=== PATIENT | female | born 1940 | race Caucasian/White ===

== ENCOUNTER 2024-03-20 21:48 | Emergency (ER) | payer MEDICARE, OTHER, SELFPAY ==
[2024-03-20 21:58] VITALS: BP 170/85
[2024-03-20 22:40] LABS: % Basophils 0.4 % (0-2); % Immature Granulocytes 0.4 % (0-0.5); % Lymphocytes 32.8 % (20.5-51.1); % Monocytes 6.5 % (1.7-9.3); % Neutrophils 59.9 % (42.2-75.2); Absolute Lymphocytes 2.7 10^3/uL (1.2-3.4); Absolute Monocytes 0.5 10^3/uL (0.1-0.6); Absolute Neutrophils 4.9 10^3/uL (1.4-6.5); Hematocrit 38.7 % (37.0-47.0); Mean Corp Hgb Conc. 33.6 g/dL (33.0-37.0); Mean Corpuscular Volume 83.4 fL (81.0-99.0); Mean Platelet Volume 10.5 fL (7.4-10.4); Nucleated Red Blood Cells % 0 %; Platelet Count 315 10^3/uL (130-400); Red Blood Cell Count 4.64 10^6/uL (4.20-5.40); Red Cell Dist. Width 13.4 % (11.5-14.5); White Blood Cell Count 8.2 10^3/uL (4.8-10.8)
[2024-03-20 22:49] LABS: Erythrocyte Sed Rate 35 mm/hour (0-20)
[2024-03-20 23:00] LABS: ALT (SGPT) 14 U/L (0-35); AST (SGOT) 18 U/L (14-36); Albumin 4.4 g/dl (3.5-5.0); Alkaline Phosphatase 82 U/L (38-126); Blood Urea Nitrogen 23 mg/dl (7-17); Calcium 9.8 mg/dl (8.4-10.2); Carbon Dioxide 23 mmol/L (22-30); Chloride 106 mmol/L (98-107); Glucose 107 mg/dl (70-99); Potassium 4.3 mmol/L (3.5-5.1); Sodium 137 mmol/L (135-145); Total Bilirubin 0.6 mg/dl (0.2-1.3); Total Protein 7.5 g/dl (6.3-8.2); eGFR > 60.00
--- NOTE | 2024-03-20 23:18 | ED.GENMED ---
History of Present Illness
General
Chief Complaint: Headache
Source: patient
Exam Limitations: none
Time Seen by Provider: 03/20/24 22:54
History of Present Illness
History of Present Illness:
This is a 83 year old female that comes in with multiple complaints. States that her PCP called her 2 days ago and told her to go to the ER. States that he wanted her to get a Sed rate as he was concerned for Temporal arteritis. States that she has
been getting headaches in the temporal area for the past 2 days and the back of her head. States that she feels like she has been loosing her balance for the past week and can't find her footing. Denies any headache at this time. Denies any fever,
chills, chest pain, abd pain, nausea, vomiting, diarrhea, dizziness, urinary burning.
Past History
Past History
ED Past Medical History: GERD, HTN, Hypercholesterolemia, Hypothyroidism, Psychiatric (Depression) and Other (Back pain Neuropathy, Numbness arms and legs, sciatica, IBS, Pancreatitis, Vertigo)
ED Past Surgical History: Cholecystectomy, Gynecological (Hysterectomy), Orthopedic (Right knee Meniscus, discectomy, Lumbar surgery, Right and left foot reconstruction ) and Other (Cataracts, )
Social History
Tobacco: Non-smoker
Alcohol: Occasional
Personal:
Living: alone (son)
Employment: Retired
Family History
Family History: CAD
Review of Systems
Review of Systems
All Other Systems: ROS reviewed and negative except as documented in HPI and ROS
Constitutional: Reports no symptoms; Denies fever or chills
EENT: Reports no symptoms
Respiratory: Reports no symptoms; Denies cough or trouble breathing
Cardiac: Reports no symptoms; Denies chest pain
ABD/GI: Reports no symptoms; Denies abdominal pain, nausea, vomiting or diarrhea
: Reports no symptoms; Denies dysuria, frequency or urgency
Musculoskeletal: Reports no symptoms
Skin: Reports no symptoms
Neurological: Reports headache; Denies dizzy
Psychiatric: Reports no symptoms
Phy Exam
General Physical Exam
General Presentation: well appearing and no apparent distress
General age: appears stated age
General Skin: warm and dry
General Habitus: elderly
General Mental: alert
General Hydration: dry mucous membranes
ENT Exam
ENT Exam: TM's normal, pharynx normal and neck supple
Eye Exam
Eye Exam: EOMI
Cardiovascular Exam
Cardiovascular Exam: regular rate/rhythm and normal peripheral pulses
Pulmonary Exam
Pulmonary Exam: lungs clear, no respiratory distress, no rales, chest non tender, no crackles, no rhonchi, no wheezing and no cough
Gastrointestinal Exam
Gastrointestinal Exam: normal bowel sounds, non tender, soft, no organomegaly, no pulsatile mass and non distended
Musculoskeletal Exam
Musculoskeletal Exam: full ROM and no edema
Skin Exam
Skin Exam: normal color, warm/dry, no rash and no petechia
Psychiatric Exam
Psychiatric Exam: normal mood/affect
Course
Orders/Labs/Results
Orders:
Orders
03/20/24 22:32
CMP [Comprehensive Metabolic Panel] Urgent
Complete Blood Count/With Diff Urgent
Erythrocyte Sed Rate Urgent
03/20/24 23:18
0.9% Sodium Chloride 500 ml [Nss] 500 ml IV BOLUS
03/20/24 23:30
Electrocardiogram (*1) Urgent
Reason for Study: Vertigo / Dizzy
EKG- Treatment ONCE
03/20/24 23:35
Urinalysis Reflex To Culture Urgent
Date Specimen was Collected: 03/20/24
Time Specimen was Collected: 23:34
Urine Microscopic Reflex Cult Urgent
Urine Culture Urgent
ELISABETH Source: U
Specimen Description:
Date Specimen was Collected: 03/20/24
Time Specimen was Collected: 23:34
03/21/24 00:[address] Cervical Spine W/o Iv Contr Urgent
Reason For Exam: Neck pain
CT Head W/o Iv Contrast Urgent
Reason For Exam: Headache, balance issues
03/21/24 01:13
Fosfomycin [Monurol] 3 gm PO ONCE ONE
Abnormal Lab Results
03/20/24 03/20/24
22:32 23:35
MPV 10.5 H fL
(7.4-10.4)
ESR 35 H mm/hour
(0-20)
BUN 23 H mg/dl
(7-17)
Glucose 107 H mg/dl
(70-99)
Leukocyte Esterase Rfl 1+ A
(Negative)
Urine RBC 3-6 A /HPF
(0-2)
Urine WBC (Reflex) 16-20 A /HPF
(0-5)
Urine Bacteria (Reflex) Moderate A
(Negative)
03/20/24 22:32
03/20/24 22:32
Dehydration. Sed rate slightly elevated. (adjust for age, Needs to be greater then 50 to be considered for Temporal arteritis), Glucose nonfasting.
Vital Signs
Initial and Last Documented VS:
Initial Vital Signs
Temp Pulse Resp BP Pulse Ox
97.8 F 67 16 170/85 99
03/20/24 21:58 03/20/24 21:58 03/20/24 21:58 03/20/24 21:58 03/20/24 21:58
Last Documented Vital Signs
Temp Pulse Resp BP Pulse Ox
97.8 F 72 14 163/57 100
03/20/24 21:58 03/21/24 00:00 03/21/24 00:00 03/21/24 00:00 03/21/24 00:00
MDM/Problems Addressed
Differential Diagnosis Includes:
headache, Dehydration, Degenerative cervical spine,
MDM/Problems Addressed:
This is a 83 year old female that comes in with c/o headache. States that her PCP told her to come to the ER 2 days ago for a sed rate. State that she had been getting headaches in the temporal area and behind her head. State that she has been
loosing her balance and feels that when she walks on the left foot she may fall.
Will check labs and get CT of head and neck.
Back into see patient. Explained that her blood work shows Dehydration. Her CT of the head is normal and there are Degenerative changes in the cervical spine. Patient to follow up with the PCP. Patient also has a UTI. Will treat with Monurol which
is a one time dose. Patient to follow up wtih the PCP for recheck urine in a week. Patient to return with any concerns.
Chronic conditions affecting care:
Degenerative changes
Acute Exacerbation and/or Progression of Chronic Illness:
Degenerative changes
*Radiology
Radiology exam reviewed: radiology read reviewed (CT head- night hawk- No acute hemorrhage, herniation or hydrocephalus. No calvarial fracture. The visualized paranasal sinuses and mastoid air cells are clear. CT cervical spine- No acute fracture or
traumatic malalignment. 2mm of anterolisthesis of C4 on C5. No significant prevertebral edema. ) and other (Cervical spine Cont- Multilevel degenerative changes of the cervical spine. IF there are persistent neurologic symptosm, consider MRI for
further characterization. )
*Pulse Oximetry
Patient hypoxic: no
*Lock Technician Interpretation
Rate: Lock Technician- N/A
*Critical Care Note
Total Time (30-74mins, 75-104mins- exclusive of procedures): Not Applicable
ED Attending Note
-
Portions of this chart may have been created with voice recognition software.� Occasional wrong word or��sound alike� substitutions may have occurred due to the inherent limitations of voice recognition software.
Discharge Plan
Departure
Patient Disposition: Home (Routine Discharge)
Date of Disposition: 03/21/24
Time of Disposition: 01:17
Patient with high blood pressure during this ER visit?: Yes
Condition: Good
Covid-19: Not Applicable
Discharge Problem:
Urinary tract infection
Instructions: Headache, Adult (DC), BLOOD PRESSURE
Prescriptions:
No Action
acebutolol 400 MG capsule
200 mg PO DAILY
Patient Comments:
'I forget to take this medication pretty often. I think I maybe take it every other day or so.'
Lisinopril
5 mg PO DAILY
Patient Comments:
'I forget to take this medication pretty often. I think I maybe take it every other day or so.'
sulfamethoxazole-trimethoprim 1 TABLET tablet
1 tab PO BID Qty: 14 0RF
furosemide 20 MG tablet
20 mg PO DAILY Qty: 5 0RF
oseltamivir 75 MG capsule
75 mg PO BID Qty: 9 0RF
ondansetron 4 MG tablet,disintegrating
4 mg PO TIDPRN PRN (Reason: nausea) Qty: 25 0RF
Referrals:
Fan Conn MD [Family Provider] - Call in 1-3 days for appt
Activity Restrictions/Additional Instructions:
As discussed, your blood work shows that you are dehydrated. Please increase your water intake to 8-8oz glasses daily. Your CT of the head and is negative for any acute process and the Cervical spine shows degenerative changes. Your Sed rate is
slightly elevated but this gets adjusted for age and it would have to be above 50 before Temporal arteritis would be considered. You may use Tylenol 1000mg every 6 hours for any headache pain. You do have a urinary tract infection. You have been
given an antibiotic here that is a one time dose and that is all that is needed. Please follow up with the family doctor for recheck. IF YOU HAVE ANY OTHER CONCERNS PLEASE RETURN TO THE EMERGENCY ROOM.
Interventions
Interventions:
*Risk Screen - Suicide Last Done: 03/20/24 21:58
*General Assessment Last Done: 03/20/24 21:58
*Neglect/Abuse Screening Last Done: 03/20/24 21:58
ED- Fall Risk Assessment Last Done: 03/20/24 23:35
*ED COVID-19 Vaccine History Last Done: 03/20/24 21:58
ED- Neurological Assessment Last Done: 03/20/24 23:35
Discharge Date and Time
Print Language: SWEDISH
[2024-03-20] MEDS: NSS 500 IV (23:46)
[2024-03-21] VITALS: BP 163/57
[2024-03-21 00:12] LABS: Urine Albumin Negative (Neg - Trace); Urine Bilirubin Negative (Negative); Urine Character Clear (Clear); Urine Color Yellow; Urine Glucose Negative (Negative); Urine Ketone Negative (Negative); Urine Leukocyte 1+ (Negative); Urine Nitrite Negative (Negative); Urine Occult Blood Negative (Negative); Urine Urobilinogen Negative (Neg - 1+)
[2024-03-21 00:39] LABS: Urine Bacteria Moderate (Negative); Urine Squamous Cell 0-2 /LPF (Few); Urine White Cell 16-20 /HPF (0-5)
[2024-03-21 01:36] VITALS: BP 177/63
[2024-03-21] MEDS: MONUROL 3 GM PO (01:53)
== END 2024-03-21 01:50 | disposition home or self-care (01) ==
LOC: EMR 21:48
PROVIDERS: Clinical Nurse Specialist Family Health; EMERGENCY PHYSICIAN Student in an Organized Health Care Education/Training Program; FAMILY PHYSICIAN Internal Medicine
DX: R51.9 Headache, unspecified (principal); K21.9 Gastro-esophageal reflux disease without esophagitis; I10 Essential (primary) hypertension; E78.00 Pure hypercholesterolemia, unspecified; E03.9 Hypothyroidism, unspecified; E86.0 Dehydration; K58.9 Irritable bowel syndrome, unspecified; N39.0 Urinary tract infection, site not specified; Z82.49 Family history of ischemic heart disease and other diseases of the circulatory system; Z90.49 Acquired absence of other specified parts of digestive tract; Z90.710 Acquired absence of both cervix and uterus
CPT/HCPCS: 99284; 70450; 72125; 80053; 81003; 81015; 85025; 85652; 87077; 87086; 87186; 93005